=== PATIENT | male | born 1970 | race American Indian/Alaskan Native ===

== ENCOUNTER 2020-07-01 03:30 | Emergency (ER) | payer SELFPAY ==
[2020-07-01 04:16] VITALS: BP 111/90
[2020-07-01 04:50] LABS: Basophils % (Auto) 0.2 % (0.0-1.8); Hematocrit 48.6 % (35.5-45.6); Hemoglobin 15.7 gm/dl (11.8-15.2); Lymphocytes # (Auto) 2.2 K/mm3 (1.2-5.4); Lymphocytes % (Auto) 12.5 % (13.4-35.0); Mean Corpuscular HGB Conc 32 % (32-34); Mean Corpuscular Volume 87 fl (84-94); Monocytes % (Auto) 5.7 % (0.0-7.3); Platelet Count 300 K/mm3 (140-440); Red Blood Count 5.62 M/mm3 (3.65-5.03); Red Cell Distribution Width 15.4 % (13.2-15.2)
[2020-07-01 05:10] LABS: Albumin 5.9 g/dL (3.9-5); Calcium 11.2 mg/dL (8.4-10.2)
== END 2020-07-01 07:20 | disposition left against medical advice (07) ==
LOC: ED 03:30
DX: R25.2 Cramp and spasm (principal); Z53.21 Procedure and treatment not carried out due to patient leaving prior to being seen by health care provider
CPT/HCPCS: 36415; 80053; 85025